=== PATIENT | female | born 1945 | race Caucasian/White ===

== ENCOUNTER 2019-07-19 11:32 | Outpatient (CLI) | payer MEDICARE, BC | END 2019-07-19 23:59 | disposition home or self-care (01) | LOC: PETCFH 11:32 | PROVIDERS: ATTEND Internal Medicine Hematology & Oncology | DX: C50.411 Malignant neoplasm of upper-outer quadrant of right female breast (principal); N17.9 Acute kidney failure, unspecified | CPT/HCPCS: 78815; A9552 ==

== ENCOUNTER → 2020-03-08 | Outpatient (CLI) | payer MEDICARE, BC ==
[~2020-03-08] MED LIST: GADOTERATE 10 MMOL/20 ML VIAL ONE
== END | disposition home or self-care (01) ==
LOC: RAD 11:40
PROVIDERS: ATTEND Internal Medicine Hematology & Oncology
DX: C50.411 Malignant neoplasm of upper-outer quadrant of right female breast (principal); N13.30 Unspecified hydronephrosis; N13.4 Hydroureter; R18.8 Other ascites; K80.20 Calculus of gallbladder without cholecystitis without obstruction
CPT/HCPCS: 74183; A9575

== ENCOUNTER → 2020-05-15 | Outpatient (CLI) | payer MEDICARE, BC ==
[2020-05-15 11:24] LABS: CREATININE 1.61 mg/dL (0.55-1.02)
== END | disposition home or self-care (01) ==
LOC: RAD 10:23
PROVIDERS: ATTEND Internal Medicine Hematology & Oncology
DX: C79.51 Secondary malignant neoplasm of bone (principal); C50.411 Malignant neoplasm of upper-outer quadrant of right female breast; R18.8 Other ascites
CPT/HCPCS: 36415; 71250; 78306; 82565; A9503

== ENCOUNTER → 2020-05-23 | Outpatient (CLI) | payer MEDICARE, BC ==
[~2020-05-23] MED LIST changes: -GADOTERATE 10 MMOL/20 ML VIAL ONE; +LIDOCAINE 1%, 10ML ONE
== END | disposition home or self-care (01) ==
LOC: RAD 13:57
PROVIDERS: ATTEND Internal Medicine Hematology & Oncology
DX: R18.8 Other ascites (principal); C50.411 Malignant neoplasm of upper-outer quadrant of right female breast
CPT/HCPCS: 49083; 82042; 82945; 83615; 87070; 87205; 88112; 88305; 88341; 88342; 88360; 89051

== ENCOUNTER → 2020-05-30 | Outpatient (CLI) | payer MEDICARE, BC | END | disposition home or self-care (01) | LOC: CFH 08:34 | PROVIDERS: ATTEND Internal Medicine Hematology & Oncology | DX: C50.411 Malignant neoplasm of upper-outer quadrant of right female breast (principal); C78.7 Secondary malignant neoplasm of liver and intrahepatic bile duct; K80.20 Calculus of gallbladder without cholecystitis without obstruction; N13.30 Unspecified hydronephrosis | CPT/HCPCS: 74176 ==

== ENCOUNTER → 2020-06-06 | Outpatient (CLI) | payer MEDICARE, BC | END | disposition home or self-care (01) | LOC: RAD 12:47 | PROVIDERS: ATTEND Internal Medicine Hematology & Oncology | DX: R18.8 Other ascites (principal); C50.411 Malignant neoplasm of upper-outer quadrant of right female breast; C78.7 Secondary malignant neoplasm of liver and intrahepatic bile duct; Z17.0 Estrogen receptor positive status [ER+] | CPT/HCPCS: 49083 ==

== ENCOUNTER 2020-06-20 14:35 | Outpatient (CLI) | payer MEDICARE, BC ==
[~2020-06-20 14:35] MED LIST changes: +ALPE1TAB5 PO; +APIX5TAB PO; +ASCO500T56 PO; +ASPI81TA45 PO; +CHOL10003 PO; +FERR-51 PO; +FEXO60TA9 PO; +LEVO150T5 PO; -LIDOCAINE 1%, 10ML ONE; +METO25TA35 PO; +PALB125C PO; +PEGF6DIS2 SQ; +PRED5TAB PO; +PROC10TA2 PO
[2020-06-20] MEDS ORDERED: LIDOCAINE 1%, 10ML ONE (14:39)
== END 2020-06-20 23:59 | disposition home or self-care (01) ==
LOC: RAD 14:35
PROVIDERS: ATTEND Internal Medicine Hematology & Oncology
DX: R18.8 Other ascites (principal); C50.411 Malignant neoplasm of upper-outer quadrant of right female breast; M79.662 Pain in left lower leg; M79.661 Pain in right lower leg
CPT/HCPCS: 49083; 93970

== ENCOUNTER → 2020-06-27 | Outpatient (CLI) | payer MEDICARE, BC ==
[~2020-06-27] MED LIST changes: +LIDOCAINE 1%, 10ML ONE
== END | disposition home or self-care (01) ==
LOC: RAD 14:33
PROVIDERS: ATTEND Internal Medicine Hematology & Oncology
DX: R18.8 Other ascites (principal); C50.411 Malignant neoplasm of upper-outer quadrant of right female breast
CPT/HCPCS: 49083

== ENCOUNTER → 2020-07-04 | Outpatient (CLI) | payer MEDICARE, BC ==
[~2020-07-04] MED LIST changes: -LIDOCAINE 1%, 10ML ONE
== END | disposition home or self-care (01) ==
LOC: RAD 14:48
PROVIDERS: ATTEND Internal Medicine Hematology & Oncology
DX: C50.411 Malignant neoplasm of upper-outer quadrant of right female breast (principal); R22.43 Localized swelling, mass and lump, lower limb, bilateral
CPT/HCPCS: 93970

== ENCOUNTER → 2020-07-11 | Outpatient (CLI) | payer MEDICARE, BC ==
[~2020-07-11] MED LIST changes: +LIDOCAINE 1%, 10ML ONE
== END | disposition home or self-care (01) ==
LOC: RAD 13:58
PROVIDERS: ATTEND Internal Medicine Hematology & Oncology
DX: R18.8 Other ascites (principal); C50.411 Malignant neoplasm of upper-outer quadrant of right female breast; Z88.1 Allergy status to other antibiotic agents; Z88.2 Allergy status to sulfonamides; Z88.8 Allergy status to other drugs, medicaments and biological substances; Z88.5 Allergy status to narcotic agent; Z79.01 Long term (current) use of anticoagulants; Z79.899 Other long term (current) drug therapy
CPT/HCPCS: 49083

== ENCOUNTER 2020-07-25 14:03 | Outpatient (CLI) | payer MEDICARE, BC ==
[~2020-07-25 14:03] MED LIST changes: -LIDOCAINE 1%, 10ML ONE
[2020-07-25] MEDS ORDERED: LIDOCAINE 1%, 10ML ONE (14:16)
== END 2020-07-25 23:59 | disposition home or self-care (01) ==
LOC: RAD 14:03
PROVIDERS: ATTEND Internal Medicine Hematology & Oncology
DX: R18.8 Other ascites (principal); I82.503 Chronic embolism and thrombosis of unspecified deep veins of lower extremity, bilateral; C50.411 Malignant neoplasm of upper-outer quadrant of right female breast; C79.51 Secondary malignant neoplasm of bone; M81.0 Age-related osteoporosis without current pathological fracture; Z17.0 Estrogen receptor positive status [ER+]; Z79.01 Long term (current) use of anticoagulants; Z79.890 Hormone replacement therapy; Z79.899 Other long term (current) drug therapy; Z88.5 Allergy status to narcotic agent; Z88.8 Allergy status to other drugs, medicaments and biological substances; Z90.11 Acquired absence of right breast and nipple
CPT/HCPCS: 49083; 93970

== ENCOUNTER 2020-08-01 14:40 | Outpatient (CLI) | payer MEDICARE, BC ==
[2020-08-01] MEDS ORDERED: LIDOCAINE 1%, 10ML ONE (14:59)
[2020-08-03] MEDS ORDERED: DENO120V PO (15:05)
[2020-08-03] MEDS ORDERED: PACL6VIA IV (15:05)
[2020-08-03] MEDS ORDERED: LORA-445 PO (15:05)
[2020-08-03] MEDS ORDERED: FAMO-79 PO (15:05)
[2020-08-03] MEDS ORDERED: CALC-649 PO (15:05)
[2020-08-03] MEDS ORDERED: FULV250S3 IM (15:05)
[2020-08-03] MEDS ORDERED: CHOL10003 PO (15:05)
[2020-08-03] MEDS ORDERED: MULT-257 PO (15:05)
[2020-08-03] MEDS ORDERED: KRIL1CAP6 PO (15:05)
[2020-08-03] MEDS ORDERED: TRAM50TA2 PO (15:05)
[2020-08-03] MEDS ORDERED: FURO-93 PO (15:05)
== END 2020-08-01 23:59 | disposition home or self-care (01) ==
LOC: RAD 14:40
PROVIDERS: ATTEND Internal Medicine Hematology & Oncology
DX: R18.8 Other ascites (principal); C50.411 Malignant neoplasm of upper-outer quadrant of right female breast
CPT/HCPCS: 49083

== ENCOUNTER → 2020-08-14 | Outpatient (CLI) | payer MEDICARE, BC ==
[~2020-08-14] VITALS: Ht 162.6 cm; Wt 68.4 kg
[~2020-08-14] MED LIST changes: +CALC-649 PO; +DENO120V PO; +FAMO-79 PO; +FENTANYL PF 100 MCG/2ML ONE; +FLUMAZENIL 0.1 MG/1 ML, 5ML ONE; +FULV250S3 IM; +FURO-93 PO; +KRIL1CAP6 PO; +LIDOCAINE 1%, 10ML ONE; +LORA-445 PO; +MIDAZOLAM 1 MG/ML, 5ML ONE; +MULT-257 PO; +NALOXONE 1 MG/ML, 2ML ONE; +PACL6VIA IV; +TRAM50TA2 PO
[2020-08-14 13:09] VITALS: BP 109/70
== END | disposition home or self-care (01) ==
LOC: RAD 10:54
PROVIDERS: ATTEND Urology
DX: T83.092A Other mechanical complication of nephrostomy catheter, initial encounter (principal); N13.1 Hydronephrosis with ureteral stricture, not elsewhere classified; R18.8 Other ascites; I10 Essential (primary) hypertension; Z79.82 Long term (current) use of aspirin; Z79.899 Other long term (current) drug therapy; Z88.5 Allergy status to narcotic agent; Z88.8 Allergy status to other drugs, medicaments and biological substances; Y83.8 Other surgical procedures as the cause of abnormal reaction of the patient, or of later complication, without mention of misadventure at the time of the procedure
CPT/HCPCS: 49083; 50435; 99156; 99157; C1729; C1769; J2250; J3010; J2310

== ENCOUNTER → 2020-08-22 | Outpatient (CLI) | payer MEDICARE, BC ==
[~2020-08-22] MED LIST changes: -FENTANYL PF 100 MCG/2ML ONE; -FLUMAZENIL 0.1 MG/1 ML, 5ML ONE; -MIDAZOLAM 1 MG/ML, 5ML ONE; -NALOXONE 1 MG/ML, 2ML ONE
== END | disposition home or self-care (01) ==
LOC: RAD 15:40
PROVIDERS: ATTEND Internal Medicine Hematology & Oncology
DX: R18.8 Other ascites (principal); C50.411 Malignant neoplasm of upper-outer quadrant of right female breast; I10 Essential (primary) hypertension; Z88.2 Allergy status to sulfonamides; Z88.1 Allergy status to other antibiotic agents; Z88.8 Allergy status to other drugs, medicaments and biological substances; Z79.01 Long term (current) use of anticoagulants; Z79.899 Other long term (current) drug therapy; Z72.89 Other problems related to lifestyle
CPT/HCPCS: 49083

== ENCOUNTER → 2020-09-05 | Outpatient (CLI) | payer MEDICARE, BC ==
[~2020-09-05] MED LIST changes: +ASCO500T9 PO; +ZINC220C7 PO
== END | disposition home or self-care (01) ==
LOC: RAD 14:17
PROVIDERS: ATTEND Internal Medicine Hematology & Oncology
DX: R18.8 Other ascites (principal); C50.411 Malignant neoplasm of upper-outer quadrant of right female breast
CPT/HCPCS: 49083

== ENCOUNTER 2020-09-13 12:53 | Outpatient (CLI) | payer MEDICARE, BC ==
[~2020-09-13 12:53] MED LIST changes: -LIDOCAINE 1%, 10ML ONE
[2020-09-13] MEDS ORDERED: LIDOCAINE 1%, 10ML ONE (12:57)
== END 2020-09-13 23:59 | disposition home or self-care (01) ==
LOC: RAD 12:53
PROVIDERS: ATTEND Internal Medicine Hematology & Oncology
DX: R18.8 Other ascites (principal); C50.411 Malignant neoplasm of upper-outer quadrant of right female breast; Z88.1 Allergy status to other antibiotic agents; Z88.2 Allergy status to sulfonamides; Z88.8 Allergy status to other drugs, medicaments and biological substances; Z79.01 Long term (current) use of anticoagulants; Z79.899 Other long term (current) drug therapy
CPT/HCPCS: 49083

== ENCOUNTER 2020-09-19 15:15 | Outpatient (CLI) | payer MEDICARE, BC ==
[2020-09-19] MEDS ORDERED: LIDOCAINE 1%, 10ML ONE (15:23)
== END 2020-09-19 23:59 | disposition home or self-care (01) ==
LOC: RAD 15:15
PROVIDERS: ATTEND Internal Medicine Hematology & Oncology
DX: R18.8 Other ascites (principal); C50.411 Malignant neoplasm of upper-outer quadrant of right female breast
CPT/HCPCS: 49083

== ENCOUNTER 2020-10-04 12:51 | Day surgery (SDC) | payer MEDICARE, BC ==
[2020-10-04] MEDS ORDERED: HYDR-1067 PO (13:21)
[2020-10-04] MEDS ORDERED: LIDOCAINE 1%, 20ML ONE (13:35)
[2020-10-04] MEDS ORDERED: NALOXONE 1 MG/ML, 2ML ONE (13:54)
[2020-10-04] MEDS ORDERED: FLUMAZENIL 0.1 MG/1 ML, 5ML ONE (13:54)
[2020-10-04] MEDS ORDERED: FENTANYL PF 100 MCG/2ML ONE (13:54)
[2020-10-04] MEDS ORDERED: MIDAZOLAM 1 MG/ML, 5ML ONE (13:54)
== END 2020-10-04 16:30 | disposition home or self-care (01) ==
LOC: OUT 12:51 → EDSTATUS 14:00 → OUT 16:30
PROVIDERS: ATTEND Urology
DX: T83.092A Other mechanical complication of nephrostomy catheter, initial encounter (principal); C50.411 Malignant neoplasm of upper-outer quadrant of right female breast; R18.8 Other ascites; N13.5 Crossing vessel and stricture of ureter without hydronephrosis; Z88.2 Allergy status to sulfonamides; Z88.5 Allergy status to narcotic agent; Z88.8 Allergy status to other drugs, medicaments and biological substances; Y83.8 Other surgical procedures as the cause of abnormal reaction of the patient, or of later complication, without mention of misadventure at the time of the procedure; Y92.89 Other specified places as the place of occurrence of the external cause
CPT/HCPCS: 49083; 50435; 99156; C1729; C1769; J2250; J3010; J2310

== ENCOUNTER 2020-10-23 09:14 | Outpatient (CLI) | payer MEDICARE, BC ==
[~2020-10-23 09:14] MED LIST changes: +HYDR-1067 PO
[2020-10-23] MEDS ORDERED: LIDOCAINE 1%, 10ML ONE (09:36)
== END 2020-10-23 23:59 | disposition home or self-care (01) ==
LOC: RAD 09:14
PROVIDERS: ATTEND Internal Medicine Hematology & Oncology
DX: C50.411 Malignant neoplasm of upper-outer quadrant of right female breast (principal); R18.0 Malignant ascites; Z88.2 Allergy status to sulfonamides; Z88.8 Allergy status to other drugs, medicaments and biological substances; Z88.5 Allergy status to narcotic agent; Z79.899 Other long term (current) drug therapy
CPT/HCPCS: 49083